=== PATIENT | female | born 1965 | race Caucasian/White ===

== ENCOUNTER → 2016-06-01 | Outpatient (CLI) | payer OTHER | LOC: WC.BC 14:35 | DX: Z12.31 Encounter for screening mammogram for malignant neoplasm of breast (principal); N64.59 Other signs and symptoms in breast; Z80.3 Family history of malignant neoplasm of breast | CPT/HCPCS: 77063; G0202 ==

== ENCOUNTER 2016-07-06 10:52 | Day surgery (SDC) | payer OTHER ==
[~2016-07-06] VITALS: Ht 157.5 cm; Wt 77.8 kg
[~2016-07-06 10:52] MED LIST: ASPI-557 PO; CHOL200026 PO; FEXO180T94 PO; FISH1CAP2 PO; GEMF600T3 PO; LACT1CAP72 PO; LIDOCAINE 1% (10mg/ml) 2ml SDV INJ ONE; LR 1,000 ML IV SCH; OMEP-122 PO; SIMV20TA6 PO; SOY1TABL2 PO
[2016-07-06 11:14] VITALS: BP 139/87; PULSE 73; RESP 15; TEMP 98.1; O2SAT 94; Ht 157.5 cm; Wt 77.8 kg
--- NOTE | 2016-07-06 11:31 | ANESPREOP ---
Anesthesia Record Date and Time DATE: 07/06/16 TIME: 11:28 Pre-Op Diagnosis crcs Proposed Surgical Procedure COLONOSCOPY Allergies: Coded Allergies: No Known Allergies (Unverified , 07/03/16) Ht/Wt/BMI Height: 5 ' 2.00 " Weight: 77.800 kg BMI: 31.4 kg/m2 Vital Signs Date Time Temp Pulse Resp B/P Pulse Ox O2 Delivery O2 Flow Rate FiO2 07/06/16 11:14 98.1 73 15 139/87 94 Room Air Medications Inpatient Medications Current Medications Medications (Trade) Dose Ordered Sig/Natali Start Time Stop Time Status Last Admin Dose Admin Lactated Ringer's (Lactated Ringers) 1,000 ml @ 50 mls/hr Q20H 07/04/16 07:00 07/06/16 11:26 50 MLS/HR Aspirin (Aspir 81) 81 Mg Tablet.dr, 1 TAB PO DAILY, (Reported) Last Taken: on 07/01/16 Cholecalciferol (Vitamin D3) (Vitamin D-3) 2,000 Unit Capsule, 1 CAP PO DAILY, (Reported) Last Taken: on 07/05/16 Fexofenadine HCl (Meron Allergy) 180 Mg Tablet, 1 TAB PO DAILY, (Reported) Do not drink Apple, [place], or Grapefruit juice within 4 hours of this medication, causes decreased absorption Last Taken: on 07/05/16 Gemfibrozil (Gemfibrozil) 600 Mg Tablet, 1 TAB PO BID, (Reported) Last Taken: on 07/05/16 Lactobacillus Combo No.11 (Probiotic) 1 Each Cap.sprink, 1 CAP PO DAILY, (Reported) [place]-3 Fatty Acids/Fish Oil (Fish Oil 1,000 mg Capsule) 1 Each Capsule, 1,000 MG PO DAILY, (Reported) Last Taken: on 07/01/16 Omeprazole (Omeprazole) 20 Mg Tablet.dr, 20 MG PO ACB, (Reported) Take 1 tablet, by mouth, one time a day with breakfast. Last Taken: on 07/05/16 Simvastatin (Simvastatin) 20 Mg Tablet, 1 TAB PO DAILY, (Reported) Last Taken: on 07/05/16 Soy Isofl/Blk Coh/Gr Tea/[place]er[place] ([employer] Caplet) 1 Each Tablet, 1 TAB PO DAILY, (Reported) Last Taken: on 07/05/16 Currently on Beta Jud: No Medical/Surgical History Anesthesia PMH: Reports: Obesity, Reflux, Denies: *Diabetes, Anesthesia Reactions (NO AIRWAY ISSUES N&V), Arthritis, Cancer, Clotting Problems, Glaucoma , Malignant Hyperthermia, Renal Disease, Sleep Apnea, Thyroid Disease Smoking Status: Never smoker Has pt. smoked today?: No Use Chewing Tobacco?: No Second Hand Exposure: No Substance Use Type: does not use Substance last used: unknown Alcohol Intake: none Last Drink: unknown HX of Last Menstrual Period: AGE 43 Past Surgical History Orthopedic Surgeries: Abdominal Surgeries: Genitourinary Surgeries: Cardiac Surgeries: Endocrine Surgeries: Reproductive Surgeries: Yes - C-SECTIONS Neurological Surgeries: Ear Surgeries: Nose Surgeries: Throat Surgeries: Yes - TONSILLECTOMY Other Surgeries: Yes - X2 BREAST REDUCTIONS,BLOOD CLOT REMOVED Anesthesia Adverse Reactions: FOUND nausea and vomiting Family Hx of Anesthesia Advers: none Hx of Motion Sickness: Yes Pertinent Findings EKG Rhythm: Sinus Rhythm Physical Exam Respiratory: Bilat breath sounds equal, Lungs clear, Other Cardiovascular: FOUND Regular rate, rhythm, FOUND No murmur Airway Assessment TMD: 2 Fingerbreadths Neck Extension: Good Overall Assessment: No Airway Concerns ASA: 2 Plan Anesthesia Plan: TIVA Discussion Discussed risks/options/alternatives of anesthesia and questions answered. Patient consents. Nursing pain assessment noted. Present: Parent Attestation Statement Prior to the delivery of any anesthetic medication, I examined the patient, developed the plan, obtained the patient's consent and discussed the risk and benefits of the procedure with the patient/guardian. LUAN CARCAMO CRNA July 06, 2016 11:31
[2016-07-06] MEDS ORDERED: PROPOFOL 500mg 50 ML IV ONE (11:37)
[2016-07-06] MEDS ORDERED: LIDOCAINE 1% (10mg/ml) 2ml SDV ONE (11:37)
--- NOTE | 2016-07-06 11:50 | ANESPO ---
Post-Op Note Date 07/06/16 Time: 11:48 Status Pt Participated in Evaluation: Pt participated in person Vital Signs Date Time Temp Pulse Resp B/P Pulse Ox O2 Delivery O2 Flow Rate FiO2 07/06/16 11:14 98.1 73 15 139/87 94 Room Air Respiratory Function: Airway patent, Regular respirations Cardiovascular Function: Regular pulse Mental Status: Alert/oriented Pain Level Intensity: 0 Hydration: Taking po fluids, IV infusing Complications during Recovery None apparent Post-Anesthesia Notes [email or web address] Follow-Up Instructions Instructions Per Surgeon Additional Information none LUAN CARCAMO CRNA July 06, 2016 11:49
[2016-07-06 12:43] VITALS: BP 106/65; PULSE 74; RESP 12; TEMP 98; O2SAT 96
--- NOTE | 2016-07-06 12:48 | ANESPO ---
Post-Op Note Date 07/06/16 Time: 12:48 Status Pt Participated in Evaluation: Pt participated in person Vital Signs Date Time Temp Pulse Resp B/P Pulse Ox O2 Delivery O2 Flow Rate FiO2 07/06/16 11:14 98.1 73 15 139/87 94 Room Air Respiratory Function: Airway patent, Regular respirations Cardiovascular Function: Regular pulse Mental Status: Alert/oriented Pain Level Intensity: 0 Hydration: Taking po fluids, IV infusing Complications during Recovery None apparent Post-Anesthesia Notes [email or web address] Follow-Up Instructions Instructions Per Surgeon Additional Information none LUAN CARCAMO CRNA July 06, 2016 12:48
[2016-07-06 12:58] VITALS: BP 111/67; PULSE 67; RESP 14; O2SAT 96
[2016-07-06 13:08] VITALS: BP 120/73; PULSE 72; RESP 18; O2SAT 96
[2016-07-06 13:16] VITALS: BP 137/81; PULSE 69; RESP 16; O2SAT 98
--- NOTE | 2016-07-06 18:27 | OPNOTEF ---
DATE OF PROCEDURE: 07/06/2016 SURGEON: Ari Benz MD PREOPERATIVE DIAGNOSIS Colorectal cancer surveillance. POSTOPERATIVE DIAGNOSIS Colorectal cancer surveillance, colonic polyps x 2 located at 25 cm from the anal verge/mild diverticulosis. PROCEDURE: Colonoscopy with polypectomies via snare technique x 1, cold forceps x 1. ANESTHESIA: TIVA. BRIEF HISTORY/INDICATIONS Donna is a 51-year-old female patient of Dr. Leonard who was sent for colonoscopy. It is my understanding they discussed colorectal cancer surveillance at clinic and decided to proceed with a colonoscopy. For completeness please refer to her office notes. FINDINGS Upon colonoscopy there was no evidence for angiodysplastic lesions or farhad malignancies. The patient was found to have mild sigmoid diverticulosis. Patient was also found to have two colonic polyps at 25 cm. One was small at about 3-4 mm in diameter and was removed via cold forceps technique. Second polyp was slightly larger at 5-6 mm and it was removed via snare technique. Both polyps were sent to Pathology. DESCRIPTION OF PROCEDURE After informed consent was obtained, the patient was brought to the endoscopy suite and placed on the table in the left lateral decubitus position. The patient subsequently underwent total intravenous anesthesia by the nurse astrophysics teacher per my request. Next, a digital rectal examination was performed; normal sphincter tone. No rectal masses were appreciated. An Olympus colonoscope was inserted in the anus and advanced with the lumen of the colon under direct visualization at all times until the cecum was ascertained. Triangulation of the tenia coli, ileocecal valve and appendiceal lumen were all visualized. The scope was then slowly withdrawn, again while maintaining visualization of the lumen at all times. As stated above, the entire colon was without evidence for angiodysplastic lesions farhad malignancies. The patient was found to have mild diverticulosis as well as two colonic polyps as described above. Photographs were obtained for documentation. The scope continued to be withdrawn until it was removed from the patient's anal verge. The patient tolerated the procedure without difficulty and was sent back to the preoperative area in stable condition. We will await the biopsy results to make further recommendations. If these are both hyperplastic, she will get to go 10 years. If there is tubular adenomas will have to consider a five-year colonoscopy. SADI
== END 2016-07-06 13:23 | disposition home or self-care (01) ==
LOC: NSC 10:52
PROVIDERS: ATTEND Family Medicine
DX: Z12.11 Encounter for screening for malignant neoplasm of colon (principal); K63.5 Polyp of colon; K57.30 Diverticulosis of large intestine without perforation or abscess without bleeding; K21.9 Gastro-esophageal reflux disease without esophagitis; E78.5 Hyperlipidemia, unspecified; Z79.82 Long term (current) use of aspirin; Z79.899 Other long term (current) drug therapy
CPT/HCPCS: 45380; 45385; J7120